=== PATIENT | male | born 1970 | race Caucasian/White ===

== ENCOUNTER → 2016-12-20 | Outpatient (CLI) | payer MEDICAID ==
[~2016-12-20] MED LIST: IBUPROFEN800 MG PO
--- NOTE | 2016-12-20 17:52 | RADIOLOGY REPORT PS360 ---
MRI-L-SPINE W/O, MRI-3D RENDERING/MYELOGRAM HISTORY: Worsening low back pain with left leg pain and tingling and numbness WORSENING LOW BACK PAIN ORDERING PHYSICIAN: DAMIAN VASQUEZ CRNA PATIENT AGE: 46 years COMPARISON: None TECHNIQUE: Standard multiplanar multiecho sequences are performed without contrast. 3-D MIP and myelographic images are also rendered and reviewed FINDINGS: There is normal alignment. Spinal cord ends at the T12-L1 level. T12-L1: Unremarkable. L1-L2: Unremarkable. L2-L3: Mild ligamentum and facet hypertrophy. L3-L4: Mild ligamentum and facet hypertrophy. L4-L5: Mild concentric bulging disc along with facet and ligamentum hypertrophy. Very minimal broad-based central disc protrusion noted slightly eccentric toward the left. Canal stenosis is present at this level and there is bilateral lateral recess narrowing left slightly greater than right along with minimal bilateral foraminal narrowing. L5-S1: Degenerative disc disease with bulging disc along with facet and ligamentum flavum hypertrophy with a small central disc protrusion/herniation slightly eccentric toward the left abutting the left S1 nerve root canal stenosis and bilateral lateral recess narrowing left greater than right and mild bilateral foraminal narrowing. IMPRESSION: 1. Mild concentric bulging disc at L4-5 along with facet and ligamentum hypertrophy. Very minimal broad-based central disc protrusion noted slightly eccentric toward the left. Canal stenosis is present at this level and there is bilateral lateral recess narrowing left slightly greater than right along with minimal bilateral foraminal narrowing. 2. Degenerative disc disease L5-S1 with bulging disc along with facet and ligamentum flavum hypertrophy with a small central disc protrusion/herniation slightly eccentric toward the left abutting the left S1 nerve root canal stenosis and bilateral lateral recess narrowing left greater than right and mild bilateral foraminal narrowing
== END ==
LOC: RAD 12-17 14:30
DX: M54.5 Low back pain (principal)